=== PATIENT | female | born 1950 | race Caucasian/White ===

== ENCOUNTER 2021-12-26 11:23 | Outpatient (CLI) | payer MEDICARE, BC | END 2021-12-26 11:24 | disposition home or self-care (01) | LOC: CSHLAB 11:23 | PROVIDERS: ATTEND Internal Medicine Critical Care Medicine | DX: Z20.822 Contact with and (suspected) exposure to COVID-19 (principal) | CPT/HCPCS: 87811 ==

== ENCOUNTER 2021-12-29 15:00 | Outpatient (CLI) | payer MEDICARE, BC | END 2021-12-29 15:01 | disposition home or self-care (01) | LOC: CSHCT 15:00 | PROVIDERS: ATTEND Internal Medicine Critical Care Medicine | DX: J84.112 Idiopathic pulmonary fibrosis (principal); R91.1 Solitary pulmonary nodule | CPT/HCPCS: 71250; 94010; 94726; 94729; 94760 ==

== ENCOUNTER 2022-05-01 12:37 | Outpatient (CLI) | payer MEDICARE, BC | END 2022-05-01 12:38 | disposition home or self-care (01) | LOC: CSHCP 12:37 | PROVIDERS: ATTEND Internal Medicine Critical Care Medicine | DX: J84.112 Idiopathic pulmonary fibrosis (principal); J98.4 Other disorders of lung | CPT/HCPCS: 94010; 94726; 94729; 94760 ==

== ENCOUNTER 2025-05-05 12:50 | Outpatient (CLI) | payer MEDICARE, BC | END 2025-05-05 12:51 | disposition home or self-care (01) | LOC: CSHCP 12:50 | PROVIDERS: ATTEND Internal Medicine Critical Care Medicine | DX: J84.112 Idiopathic pulmonary fibrosis (principal); J98.4 Other disorders of lung | CPT/HCPCS: 94060; 94664; 94726; 94729; 94760 ==